=== PATIENT | female | born 1945 | race Caucasian/White ===

== ENCOUNTER 2018-10-12 09:43 | Day surgery (SDC) | payer MEDICARE ==
[~2018-10-12] VITALS: Ht 172.7 cm; Wt 97.7 kg
[~2018-10-12 09:43] MED LIST: ATOR20TA37 PO; BISA5TAB5 PO; BUME0.5T PO; BUPIV; CLON; GABA400C PO; MELO15TA6 PO; OXYC15TA PO; POTA20TA6 PO; VENL150C PO; Vitamin B-12 INJ; [UNRECOGNIZED DRUG - OTHER]
[2018-10-12] MEDS ORDERED: DIPHENHYDRAMINE 50 MG/ML, 1ML IVPush ONE (10:30)
[2018-10-12] MEDS ORDERED: DIPHENHYDRAMINE 50 MG/ML, 1ML ONE (10:38)
[2018-10-12] MEDS ORDERED: MIDAZOLAM 1 MG/ML, 5ML ONE (10:56)
[2018-10-12] MEDS ORDERED: LIDOCAINE-MPF 1%, 5ML ONE (10:56)
[2018-10-12] MEDS ORDERED: FENTANYL PF 100 MCG/2ML ONE (10:56)
[2018-10-12] MEDS ORDERED: SODIUM CHLORIDE 0.9% 1,000 ML IV SCH (11:00)
== END 2018-10-12 16:37 | disposition home or self-care (01) ==
LOC: CACL 09:43 → EDSTATUS 11:45 → CACL 16:37
PROVIDERS: ATTEND Internal Medicine Cardiovascular Disease
DX: I27.20 Pulmonary hypertension, unspecified (principal); E78.2 Mixed hyperlipidemia; I10 Essential (primary) hypertension; Z85.3 Personal history of malignant neoplasm of breast; Z88.0 Allergy status to penicillin
CPT/HCPCS: 36415; 80048; 85025; 93451; C1769; C1894; J1200; J2250; J3010

== ENCOUNTER → 2018-10-25 | Outpatient (CLI) | payer MEDICARE | END | disposition home or self-care (01) | LOC: CARD 10:56 | PROVIDERS: ATTEND Internal Medicine Cardiovascular Disease | DX: I82.531 Chronic embolism and thrombosis of right popliteal vein (principal); I87.2 Venous insufficiency (chronic) (peripheral); I27.20 Pulmonary hypertension, unspecified | CPT/HCPCS: 93970; 94060; 94726; 94729 ==

== ENCOUNTER → 2019-01-23 | Outpatient (CLI) | payer MEDICARE | END | disposition home or self-care (01) | LOC: RAD 12:13 | PROVIDERS: ATTEND Internal Medicine Cardiovascular Disease | DX: I27.24 Chronic thromboembolic pulmonary hypertension (principal) | CPT/HCPCS: 71046; 78582; A9540; A9558 ==